=== PATIENT | male | born 1950 | race African-American/Black ===

== ENCOUNTER 2016-06-18 06:19 | Day surgery (SDC) | payer OTHER ==
[2016-06-14 15:13] VITALS: BMI 25.2
--- NOTE | 2016-06-18 06:16 | HP ---
History & Physical Update - History History: No Change - Physical Physical: No Change - Assessment Assessment: No Change - Plan Plan: No Change
[~2016-06-18 06:19] MED LIST: TOBRA 0.3%/DEXAMETH 0.1% OPHTHALMIC SUSP 2.5 ML BTL TP ONE
[2016-06-18] MEDS ORDERED: CYCLOPENTOLATE HCL 1% OPHTH SOLN 2 ML BOTTLE ONE (06:43)
[2016-06-18] MEDS ORDERED: MOXIFLOXACIN HCL 0.5% OPHTHALMIC 3 ML BOTTLE ONE (06:43)
[2016-06-18] MEDS ORDERED: TROPICAMIDE 1% OPHTH SOLN 15 ML BOTTLE ONE (06:43)
[2016-06-18] MEDS ORDERED: PHENYLEPHRINE 2.5% OPHTH SOLN 15 ML BOTTLE ONE (06:44)
[2016-06-18 06:53] VITALS: TEMP 97.8
[2016-06-18] MEDS: CYCLOPENTOLATE HCL 1% OPHTH SOLN 2 ML BOTTLE OP SCH ×2 (07:00→07:05)
[2016-06-18] MEDS: MOXIFLOXACIN HCL 0.5% OPHTHALMIC 3 ML BOTTLE OP SCH ×2 (07:00→07:05)
[2016-06-18] MEDS: PHENYLEPHRINE 2.5% OPHTH SOLN 15 ML BOTTLE OP SCH ×2 (07:00→07:05)
[2016-06-18] MEDS: TROPICAMIDE 1% OPHTH SOLN 15 ML BOTTLE OP SCH ×2 (07:00→07:05)
[2016-06-18] MEDS ORDERED: EPINEPHrine/PF 1 MG/1 ML (1:1,000) AMPULE ONE (07:45)
[2016-06-18] MEDS ORDERED: TOBRA 0.3%/DEXAMETH 0.1% OPHTHALMIC SUSP 2.5 ML BTL ONE (07:45)
[2016-06-18] MEDS ORDERED: LIDOCAINE 1% P/F 10 MG/ML VIAL ONE (07:45)
[2016-06-18] MEDS ORDERED: BSS (NA/CA/MG/K) BALANCED SALT SOLUTION OPHTH SOLN 15 ML BOTTLE ONE (07:46)
[2016-06-18] MEDS ORDERED: TETRACAINE 0.5% OPHTH SOLN 2 ML BOTTLE ONE (07:46)
[2016-06-18] MEDS ORDERED: POVIDONE-IODINE 5% OPHTHALMIC PREP 30 ML SOLUTION ONE (07:46)
[2016-06-18] MEDS ORDERED: TETRACAINE 0.5% OPHTH SOLN 2 ML BOTTLE OD ONE (07:48)
[2016-06-18] MEDS ORDERED: MIDAZOLAM HCL 2 MG/2 ML SINGLE DOSE VIAL ONE (07:59)
[2016-06-18] MEDS ORDERED: POVIDONE-IODINE 5% OPHTHALMIC PREP 30 ML SOLUTION OD ONE (08:09)
[2016-06-18] MEDS ORDERED: BSS (NA/CA/MG/K) BALANCED SALT SOLUTION OPHTH SOLN 15 ML BOTTLE OD ONE ×2 (08:18→08:35)
[2016-06-18] MEDS ORDERED: LIDOCAINE HCL 1% PRESERVATIVE FREE - 30ML VIAL IO ONE (08:19)
[2016-06-18] MEDS ORDERED: CHONDROITIN SU A/HYALUR SOD 1 KIT IO ONE (08:21)
[2016-06-18] MEDS ORDERED: TOBRA 0.3%/DEXAMETH 0.1% OPHTHALMIC SUSP 2.5 ML BTL TP ONE (08:51)
[2016-06-18] MEDS ORDERED: ACETAMINOPHEN 325 MG TABLET (FP) ONE (09:40)
[2016-06-18] MEDS ORDERED: ACETAMINOPHEN 325 MG TABLET (FP) PO ONE (09:40)
--- NOTE | 2016-06-18 11:32 | OP ---
DATE OF OPERATION: 06/18/2016 SURGEON: Holland Potter MD PREOPERATIVE DIAGNOSIS: Cataract, right eye. OPERATION: Phacoemulsification and intraocular lens implantation, right eye. POSTOPERATIVE DIAGNOSIS: Cataract, right eye. ANESTHESIA: Topical. COMPLICATIONS: None. BLOOD LOSS: None. SPECIMEN: None. BRIEF HISTORY: The patient is a 66-year-old man with a past medical history of diabetes who presented with decreased vision in the right eye down to 20/200 due to a 2+ nuclear sclerotic lens and a diffuse posterior subcapsular cataract and peripheral cortical spokes. After the risks, benefits, and alternatives to cataract surgery were discussed with the patient, he consented to surgery for the right eye. DESCRIPTION OF PROCEDURE: The patient was brought to the operating room and prepped and draped in the usual sterile fashion, and an eyelid speculum was inserted in the right eye. A paracentesis was made, and the anterior chamber was inflated with nonpreserved lidocaine. This was followed by injection of Viscoat. Due to the poorly dilating pupil at this point down to 4 mm, it was determined to place 5 iris hooks around the iris in order to enlarge and stabilize the pupil. This was done without incident. A groove was made in the temporal clear cornea, which was tunneled forward with a crescent blade. The anterior chamber was entered with a 2.75 keratome. The cystotome was used to make an incision in the center of the capsule, and a continuous curvilinear capsulorrhexis was created. The lens was hydrodissected until it was found to rotate freely within the capsular bag. Phacoemulsification was then used to remove the lens in its entirety. Irrigation and aspiration was used to remove residual cortical material. The anterior chamber and capsular bag were reinflated with Provisc, and a 20.5 diopter SN60WF AcrySof intraocular lens was injected into the capsular bag using [place] injector. The lens was dialed into place using a [place] hook. Irrigation and aspiration was used to remove residual viscoelastic. The wound was stromally hydrated. The 5 previously placed iris hooks were removed without incident. The wound was found to be watertight, and the iris was under appropriate pressure. The eyelid speculum was removed from the eye, and Tobradex drops and a clear shield were placed over the right eye. The patient was transferred to the recovery room in stable condition and will follow up tomorrow. Kalpana [id number] MTDD
[2016-06-18 12:25] VITALS: BP 143/75; PULSE 85
== END 2016-06-18 10:00 | disposition home or self-care (01) ==
LOC: JASU-SURG 06:19
PROVIDERS: ATTEND Ophthalmology
PROC: 08RJ3JZ Replacement of Right Lens with Synthetic Substitute, Percutaneous Approach (ICD-10-PCS; principal; 2016-06-18 08:00)
DX: H25.11 Age-related nuclear cataract, right eye (principal); H57.04 Mydriasis

== ENCOUNTER 2016-07-30 08:10 | Day surgery (SDC) | payer OTHER ==
[2016-07-26 17:05] VITALS: BMI 25.2
--- NOTE | 2016-07-30 05:58 | HP ---
History & Physical Update - History History: No Change - Physical Physical: No Change - Assessment Assessment: No Change - Plan Plan: No Change
[2016-07-30] MEDS: TROPICAMIDE 1% OPHTH SOLN 15 ML BOTTLE OP SCH ×3 (08:30→08:40)
[2016-07-30] MEDS: MOXIFLOXACIN HCL 0.5% OPHTHALMIC 3 ML BOTTLE OP SCH ×3 (08:30→08:40)
[2016-07-30] MEDS: CYCLOPENTOLATE HCL 1% OPHTH SOLN 2 ML BOTTLE OP SCH ×3 (08:30→08:40)
[2016-07-30] MEDS: PHENYLEPHRINE 2.5% OPHTH SOLN 15 ML BOTTLE OP SCH ×3 (08:30→08:40)
[2016-07-30 08:43] VITALS: TEMP 97.9
[2016-07-30] MEDS ORDERED: MIDAZOLAM HCL 2 MG/2 ML SINGLE DOSE VIAL ONE (10:28)
[2016-07-30] MEDS ORDERED: TETRACAINE 0.5% OPHTH SOLN 2 ML BOTTLE TP ONE (10:29)
[2016-07-30] MEDS ORDERED: LIDOCAINE HCL 1% PRESERVATIVE FREE - 30ML VIAL IO ONE (10:38)
[2016-07-30] MEDS ORDERED: CHONDROITIN SU A/HYALUR SOD 1 KIT IO ONE (10:39)
[2016-07-30] MEDS ORDERED: TOBRA 0.3%/DEXAMETH 0.1% OPHTHALMIC SUSP 2.5 ML BTL ONE (10:43)
[2016-07-30] MEDS ORDERED: BSS (NA/CA/MG/K) BALANCED SALT SOLUTION OPHTH SOLN 15 ML BOTTLE ONE (10:43)
[2016-07-30] MEDS ORDERED: TETRACAINE 0.5% OPHTH SOLN 2 ML BOTTLE ONE (10:43)
[2016-07-30] MEDS ORDERED: EPINEPHrine/PF 1 MG/1 ML (1:1,000) AMPULE ONE (10:43)
[2016-07-30] MEDS ORDERED: LIDOCAINE HCL/PF 1% SDV 5ML VIAL ONE (10:43)
[2016-07-30] MEDS ORDERED: TOBRA 0.3%/DEXAMETH 0.1% OPHTHALMIC SUSP 2.5 ML BTL TP ONE (11:08)
[2016-07-30 11:57] VITALS: BP 136/81; PULSE 65
--- NOTE | 2016-07-31 09:10 | OP ---
DATE OF OPERATION: 07/30/2016 SURGEON: Holland Potter MD PREOPERATIVE DIAGNOSIS: Cataract, left eye. OPERATION: Phacoemulsification and intraocular lens implantation, left eye. POSTOPERATIVE DIAGNOSIS: Cataract, left eye. ANESTHESIA: Topical. COMPLICATIONS: None. BLOOD LOSS: None. SPECIMEN: None. BRIEF HISTORY: The patient is a 66-year-old man with a past medical history of diabetes. He presented with decreased vision in the left eye down to 20/40 due to a 2+ nuclear sclerotic lens with an early posterior subcapsular cataract. After the risks, benefits and alternatives to cataract surgery were discussed with the patient, he consented to surgery for the left eye. The patient was brought to the operating room and prepped and draped in the usual sterile fashion and the eyelid speculum was inserted in the left eye. A paracentesis was made and the anterior chamber was inflated with nonpreserved lidocaine. At this point, due to the poorly dilating pupil down to 4.5 mm, it was determined to place four iris hooks in order to enlarge and stabilize the wound. This was done without incident. A groove was made in the superotemporal clear cornea which was tunneled forward with a crescent blade. The anterior chamber was entered with a 2.75 keratome. A cystitome was used to make an incision in the center of the capsule and a continuous curvilinear capsulorhexis was created. The lens was hydrodissected until it was found to rotate freely within the capsular bag. Phacoemulsification was then used to remove the lens in its entirety. Irrigation and aspiration was used to remove residual cortical material. The anterior chamber and capsular bag were reinflated with Provisc and a 21.0 diopter SN60WF AcrySof intraocular lens was injected into the capsular bag using the [place] injector. The lens was dialed into place using a [place] hook. Irrigation and aspiration was used to remove residual viscoelastic. The four previously placed iris hooks were removed without incident. The pupil was found to constrict round and without any peaking. The wound was rechecked and found to be watertight and the eye was an appropriate pressure. The eyelid speculum was removed from the eye and TobraDex drops and a clear shield were placed over the left eye. The patient was transferred to the recovery room in stable condition and will follow up tomorrow. Kalpana [id number]
== END 2016-07-30 11:59 | disposition home or self-care (01) ==
LOC: JASU-SURG 08:10
PROVIDERS: ATTEND Ophthalmology
PROC: 08RK3JZ Replacement of Left Lens with Synthetic Substitute, Percutaneous Approach (ICD-10-PCS; principal; 2016-07-30 10:00)
DX: H25.12 Age-related nuclear cataract, left eye (principal); H54.7 Unspecified visual loss; E11.9 Type 2 diabetes mellitus without complications; H57.04 Mydriasis

== ENCOUNTER 2017-12-29 08:43 | Day surgery (SDC) | payer OTHER ==
[2017-12-26 12:18] VITALS: BMI 26.1
[2017-12-29 10:57] LABS: BASO % 1.2 % (0-2.0); HEMOGLOBIN 9.9 GM/dL (11.7-16.9); LYMPH % 28.7 % (8-40); MCH 28.7 pg (25.7-33.7); MCHC 34.1 g/dl (32.0-35.9); MEAN PLT VOLUME 7.8 fl (7.5-11.1); MONO % 15.1 % (3.8-10.2); PLATELET COUNT 131 K/MM3 (134-434); RBC 3.45 M/mm3 (4.00-5.60); RDW 14.3 % (11.9-15.9); WHITE BLOOD COUNT 2.6 K/mm3 (4.0-10.0)
[2017-12-29 11:38] LABS: INR 0.99 (0.83-1.09); PROTHROMBIN TIME (PATIENT) 11.7 SEC (9.7-13.0)
[2017-12-29 13:21] VITALS: TEMP 98.9
[2017-12-29 15:51] VITALS: BP 132/76; PULSE 72
--- NOTE | 2018-01-05 15:28 | PATH ---
Surgical Pathology Report Patient Name: AWILDA MCNAMARA Med. Rec. #: [id number] /Age/Gender: 1950 (Age: 67) / M Account: [id number] Location: RADIOLOGY INTER Taken: 12/29/2017 Received: 12/29/2017 Reported: 01/05/2018 Physicians: Isael Bob M.D. Jin Ho M.D. Specimen(s) Received LEFT LYMPH NODE BIOPSY (ALSO RECEIVED TISSUE IN RPMI) Clinical History Cervical lymphadenopathy rule out metastases versus lymphoma Final Diagnosis CERVICAL, LYMPH NODE, LEFT, CORE BIOPSY: FOLLICULAR LYMPHOMA, GRADE 3A, SEE COMMENT. Comment: Concurrent flow cytometry immunophenotyping, performed on the concurrent sample ([id number]), demonstrated a clonal CD10+ B-cell population. This case was sent to Dr. Rajinder Cruz from [facility], [place], [place] ([id number]) the diagnosis above reflects his opinion. See [facility] reports ([id number] and [id number]) for additional details. Office of Dr. Ho informed that significant findings will be faxed (Plum). Electronically Signed Deena Horton M.D. Gross Description Received in formalin labeled "left neck lymph node biopsy," are 4 silvestre, cylindrical portions of soft tissue ranging from 0.4-1.8 cm in length and averaging 0.1 cm in diameter. The specimen is submitted in toto in one cassette. There is additional tissue received in RPMI solution which is sent for flow cytometry. 12/29/201712/29/2017
== END 2017-12-29 15:53 | disposition home or self-care (01) ==
LOC: JRADIR 08:43
PROVIDERS: ATTEND Surgery
PROC: 07D23ZX Extraction of Left Neck Lymphatic, Percutaneous Approach, Diagnostic (ICD-10-PCS; principal; 2017-12-29)
DX: C82.31 Follicular lymphoma grade IIIa, lymph nodes of head, face, and neck (principal)
CPT/HCPCS: 36415; 76942-TC; 82962; 85025; 85610; 87899; 88305-TC; 88341-TC; 88342-TC